=== PATIENT | male | born 1965 | race Caucasian/White ===

== ENCOUNTER 2022-05-23 13:31 | Outpatient (CLI) | payer BC, SELFPAY ==
[2022-05-23 15:54] LABS: Albumin* 4.6 g/dL (3.3-5.0)
[2022-05-23 15:55] LABS: Chloride* 103 mmol/L (96-114); Potassium* 4.2 mmol/L (3.6-5.1); Sodium* 142 mmol/L (135-149)
[2022-05-23 15:57] LABS: Aspartate Amino Transferase* 153 U/L (12-35); Bilirubin Total* 1.4 mg/dL (0.1-1.5); Carbon Dioxide* 30 mmol/L (20-32); Creatinine* 0.7 mg/dL (0.5-1.5); Estimated Glomerular Filt Rate 107 ml/min
[2022-05-23 15:58] LABS: Alanine Aminotransferase* 90 U/L (4-50); Alkaline Phosphatase* 130 U/L (40-150); Blood Urea Nitrogen* 9 mg/dL (7-30); Calcium* 8.8 mg/dL (8.4-10.6); Glucose* 114 mg/dL (60-115); Total Protein* 7.8 g/dL (6.0-8.3)
== END 2022-05-23 13:32 | disposition home or self-care (01) ==
LOC: NFLDREF 13:33
PROVIDERS: PCP Internal Medicine; Visit Provider Internal Medicine
DX: I31.9 Disease of pericardium, unspecified (principal)
CPT/HCPCS: 80053

== ENCOUNTER 2022-06-01 08:39 | Outpatient (CLI) | payer BC, SELFPAY | END 2022-06-01 08:40 | disposition home or self-care (01) | LOC: RAD 08:41 | PROVIDERS: PCP Internal Medicine; Visit Provider Internal Medicine | DX: I31.9 Disease of pericardium, unspecified (principal); I51.7 Cardiomegaly | CPT/HCPCS: 93306 ==